=== PATIENT | female | born 1990 | race Caucasian/White ===

== ENCOUNTER → 2020-03-19 08:42 | Outpatient (CLI) | payer OTHER, SELFPAY ==
--- NOTE | 2020-03-19 08:45 | DI.US.S_ITS ---
PROCEDURE: US OB >= 14 WEEKS FETUS INDICATIONS: ANATOMY SCAN OUTSIDE/PRIOR DATING DATA: Last menstrual period (LMP): 10/28/19. LMP-based estimated date of delivery (JOANIE): 08/03/20. First dating scan (date and location): A prior outside dating scan is not available, yet with a given estimated date of delivery of 08/03/20. Estimated date of delivery (JOANIE) from this dating scan: 08/05/20. TECHNIQUE: Real-time scanning was performed of the fetus, with image documentation and biometric measurements. COMPARISON: None. FINDINGS: General: A single live intrauterine gestation is present. Presentation: Breech. Placenta: Placental position is anterior, without previa. Amniotic fluid index: 14.6 cm, normal range is 5-24 cm. heart rate: 160 beats per minute. Maternal cervical canal: 4.7 cm long. Normal lower limit is 2.5 cm. biometrics: Biparietal diameter: 4.7 cm equals 20 weeks 2 days Head circumference: 17.4 cm equals 20 weeks 0 days Abdominal circumference: 15.3 cm equals 20 weeks 3 days Femur length: 3.2 cm equals 19 weeks 6 days Estimated gestational age from initial scan: 20 weeks 3 days Composite gestational age from present scan: 20 weeks 1 day Estimated weight and percentile: 335 g, 30 percentile Measurement variability for biometric dating: +/- 7 days from 14 weeks to 15 weeks 6 days gestation, +/- 10 days from 16 weeks to 21 weeks 6 days gestation, +/- 2 weeks from 22 weeks to 27 weeks 6 days gestation, +/- 3 weeks for 28 weeks gestation or later. weight reference: 4500 g or EFW >90/95% is considered macrosomia or large for gestational age. EFW <10% is small for gestational age. EFW 5% or less is considered intra-uterine growth restriction. Anatomic survey: Neuro: Ventricles are non-dilated at less than 10 mm. Cisterna magna is normal at 3-11 mm. Cerebellum is normal in size and morphology. Nuchal skin fold: Normal at less than 6 mm between 14-21 weeks gestational age. Face: Nose and lips, facial profile are normal. Spine: No evidence for spina bifida. Heart: 4-chambered heart is present, with normal ventricular outflow tracts. Diaphragm: Diaphragm is intact. Stomach: Left-sided stomach is present. Kidneys: No hydronephrosis. Normal is less than 5 mm in 2nd trimester, less than 7 mm in 3rd trimester. Cord: 3-vessel cord has orthotopic insertion. Bladder: Normal in size. Extremities: All 4 extremities identified. IMPRESSION: A single live intrauterine is seen. No anatomic abnormalities are identified. No significant discrepancy is found between the estimated gestational age based on these images and the estimated gestational age based upon the given outside dating. Negative for placenta previa. Dictated by: Pablito Lopez M.D. on 03/19/2020 at 10:01 Approved by: Pablito Lopez M.D. on 03/19/2020 at 10:05
== END ==
PROVIDERS: Referring Provider Obstetrics & Gynecology; Visit Provider Obstetrics & Gynecology
DX: Z36.89 Encounter for other specified antenatal screening (principal); Z3A.20 20 weeks gestation of pregnancy
CPT/HCPCS: 76811

== ENCOUNTER → 2020-05-08 08:34 | Outpatient (CLI) | payer OTHER, SELFPAY ==
[2020-05-08 10:51] LABS: Hematocrit 37.5 % (36-46); Hemoglobin 12.7 g/dL (12.0-16.0)
[2020-05-08 11:18] LABS: GTT (PREG) 1 Hour PP 50gm Dose 97 mg/dL (76-139)
== END ==
PROVIDERS: Referring Provider Obstetrics & Gynecology; Visit Provider Obstetrics & Gynecology
DX: Z34.82 Encounter for supervision of other normal pregnancy, second trimester (principal); Z3A.26 26 weeks gestation of pregnancy
CPT/HCPCS: 36415; 82950; 85014; 85018

== ENCOUNTER 2020-05-12 14:54 | Observation (INO) | payer OTHER, SELFPAY ==
[2020-05-12 16:03] LABS: Add Manual Diff / Slide Review NO; Basophils Absolute Auto 0 /uL (0-100); Basophils Percent Auto 0.2 % (0-2); Eosinophils Absolute Auto 200 /uL (0-450); Eosinophils Percent Auto 1.8 % (2-4); Hematocrit 36.4 % (36-46); Hemoglobin 12.8 g/dL (12.0-16.0); Lymphocytes Absolute Auto 2300 /uL (1100-4500); Lymphocytes Percent Auto 17.7 % (25-40); Mean Corpuscular HGB Conc 35.2 % (30-36); Mean Corpuscular Hemoglobin 31.7 PG (26-34); Mean Corpuscular Volume 90.2 fL (80-100); Monocytes Absolute Auto 700 /uL (0-900); Monocytes Percent Auto 5.7 % (3-14); Neutrophils Absolute Auto 9600 /uL (1500-7000); Neutrophils Percent Auto 74.6 % (50-75); Platelet Count 205 X10^3/uL (150-400); Red Blood Cell Count 4.03 X10^6/uL (4.0-5.2); White Blood Cell Count 12.9 X10^3/uL (4.5-11.0)
[2020-05-12 16:17] LABS: Aspartate Aminotransferase 23 IU/L (14-36); BUN Creatinine Ratio 13.5 (6-22); Blood Urea Nitrogen 5 mg/dL (7-17); Estimated Glomerular Filt Rate > 60.0 mL/min (>60)
[2020-05-12 16:22] LABS: Appearance Urine UA CLEAR; Bilirubin Urine UA NEGATIVE (NEGATIVE); Color Urine UA YELLOW; Glucose Urine UA NEGATIVE (Negative); Ketones Urine UA NEGATIVE (NEGATIVE); Leukocyte Esterase Urine UA NEGATIVE (NEGATIVE); Nitrite Urine UA NEGATIVE (Negative); Occult Blood Urine UA NEGATIVE (Negative); Protein Urine UA NEGATIVE (Negative); Urobilinogen Urine UA 0.2 E.U./dL (0.2)
[2020-05-12 16:38] LABS: Squamous Epithelial Cell Urine 1-5 /HPF (0-5/HPF); pH Urine UA 7.5 (4.5-8.0)
[2020-05-12 16:39] LABS: Bacteria Urine Many (>30); Culture Indicated Urine Cult Not Indicated; RBC Urine 0-1/HPF (0-5/HPF); WBC Urine 0-1/HPF (0-5/HPF)
[2020-05-12 16:55] LABS: Creatinine Urine Random 32.4 mg/dL; Protein (Total) Urine Random 15 mg/dL (0-12); Protein Creatinine Ratio Urine 0.46 GRAM/24H
--- NOTE | 2020-05-12 16:58 | PM.OBTRLD ---
Visit Information Visit Information Date of evaluation: 05/12/20 Primary OB Provider: Aletha Peoples Reason for Evaluation: Yes non-stress test Vital Signs Vital Signs: 140/90-> 108/55, HR 109 PFSH Medical History Eczema (Acute) White coat syndrome with diagnosis of hypertension (Acute) Surgical History [place] teeth extracted (Acute ~2009) Family History Father No problems noted. Mother Hypertension Grandfather Dementia Grandmother Fatty liver disease, nonalcoholic Grandfather No problems noted. 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 Smoking Status: Never smoker second hand exposure: No alcohol intake: former (pre- : very rarely ) substance use type: does not use Review of Systems Constitutional Constitutional: Reports system reviewed and no additional complaints, except as documented Objective Labs Result Diagrams: 05/12/20 15:55 05/12/20 15:55 Labs: Laboratory Results - last 24 hr 05/12/20 05/12/20 05/12/20 15:55 15:55 16:10 WBC 12.9 H RBC 4.03 Hgb 12.8 Hct 36.4 MCV 90.2 MCH 31.7 MCHC 35.2 RDW 14.0 Plt Count 205 Neut % (Auto) 74.6 Lymph % (Auto) 17.7 L [place] % (Auto) 5.7 Eos % (Auto) 1.8 L Baso % (Auto) 0.2 Neut # (Auto) 9600 H Lymph # (Auto) 2300 [place] # (Auto) 700 Eos # (Auto) 200 Baso # (Auto) 0 BUN 5 L Creatinine 0.37 L Estimated GFR > 60.0 BUN/Creatinine Ratio 13.5 Uric Acid 3.0 AST 23 Urine Color Urine Appearance Urine pH Ur Specific [place] Urine Protein Urine Glucose (UA) Urine Ketones Urine Occult Blood Urine Nitrate Urine Bilirubin Urine Urobilinogen Ur Leukocyte Esterase Urine RBC Urine WBC Ur Squamous Epith Cells Urine Bacteria Ur Culture Indicated? U Random Total Protein 15 H Urine Creatinine 32.4 Protein/Creatinin Ratio 0.46 05/12/20 16:10 WBC RBC Hgb Hct MCV MCH MCHC RDW Plt Count Neut % (Auto) Lymph % (Auto) [place] % (Auto) Eos % (Auto) Baso % (Auto) Neut # (Auto) Lymph # (Auto) [place] # (Auto) Eos # (Auto) Baso # (Auto) BUN Creatinine Estimated GFR BUN/Creatinine Ratio Uric Acid AST Urine Color Yellow Urine Appearance Clear Urine pH 7.5 Ur Specific [place] 1.010 Urine Protein Negative Urine Glucose (UA) Negative Urine Ketones Negative Urine Occult Blood Negative Urine Nitrate Negative Urine Bilirubin Negative Urine Urobilinogen 0.2 Ur Leukocyte Esterase Negative Urine RBC 0-1/hpf Urine WBC 0-1/hpf Ur Squamous Epith Cells 1-5 /hpf Urine Bacteria Many (>30) H Ur Culture Indicated? Cult not indicated U Random Total Protein Urine Creatinine Protein/Creatinin Ratio Evaluation Evaluation Baseline heart rate: 155 Variability: Moderate (11-25) monitor accelerations: Present monitor decelerations: Absent Category of Tracing: I Laboratory results: Laboratory Tests 05/12/20 05/12/20 05/12/20 15:55 15:55 16:10 WBC 12.9 H RBC 4.03 Hgb 12.8 Hct 36.4 MCV 90.2 MCH 31.7 MCHC 35.2 RDW 14.0 Plt Count 205 Neut % (Auto) 74.6 Lymph % (Auto) 17.7 L [place] % (Auto) 5.7 Eos % (Auto) 1.8 L Baso % (Auto) 0.2 Neut # (Auto) 9600 H Lymph # (Auto) 2300 [place] # (Auto) 700 Eos # (Auto) 200 Baso # (Auto) 0 BUN 5 L Creatinine 0.37 L Estimated GFR > 60.0 BUN/Creatinine Ratio 13.5 Uric Acid 3.0 AST 23 Urine Color Urine Appearance Urine pH Ur Specific [place] Urine Protein Urine Glucose (UA) Urine Ketones Urine Occult Blood Urine Nitrate Urine Bilirubin Urine Urobilinogen Ur Leukocyte Esterase Urine RBC Urine WBC Ur Squamous Epith Cells Urine Bacteria Ur Culture Indicated? U Random Total Protein 15 H Urine Creatinine 32.4 Protein/Creatinin Ratio 0.46 05/12/20 16:10 WBC RBC Hgb Hct MCV MCH MCHC RDW Plt Count Neut % (Auto) Lymph % (Auto) [place] % (Auto) Eos % (Auto) Baso % (Auto) Neut # (Auto) Lymph # (Auto) [place] # (Auto) Eos # (Auto) Baso # (Auto) BUN Creatinine Estimated GFR BUN/Creatinine Ratio Uric Acid AST Urine Color Yellow Urine Appearance Clear Urine pH 7.5 Ur Specific [place] 1.010 Urine Protein Negative Urine Glucose (UA) Negative Urine Ketones Negative Urine Occult Blood Negative Urine Nitrate Negative Urine Bilirubin Negative Urine Urobilinogen 0.2 Ur Leukocyte Esterase Negative Urine RBC 0-1/hpf Urine WBC 0-1/hpf Ur Squamous Epith Cells 1-5 /hpf Urine Bacteria Many (>30) H Ur Culture Indicated? Cult not indicated U Random Total Protein Urine Creatinine Protein/Creatinin Ratio Diagnosis, Plan/Disposition Plan/Disposition Plan: Home with follow up in 2 weeks and antepartum precautions OB Disposition: home
== END 2020-05-12 17:05 | disposition home or self-care (01) ==
PROVIDERS: Admitting Provider Obstetrics & Gynecology; Referring Provider Obstetrics & Gynecology; Visit Provider Obstetrics & Gynecology
DX: O26.892 Other specified pregnancy related conditions, second trimester (principal); R03.0 Elevated blood-pressure reading, without diagnosis of hypertension; Z3A.26 26 weeks gestation of pregnancy
CPT/HCPCS: 36415; 59025; 81001; 82570; 84156; 84450; 84550; 85025; G0378; G0379

== ENCOUNTER → 2020-05-16 08:59 | Outpatient (CLI) | payer OTHER, SELFPAY ==
[2020-05-16 11:49] LABS: Protein (Total) Urine Random 14 mg/dL (0-12)
[2020-05-16 15:54] LABS: Collection Time Urine 24 Hours; Total Protein 24 Hour Urine 434 mg/day (42-225); Total Volume Urine 3100 mL
== END ==
PROVIDERS: Referring Provider Obstetrics & Gynecology; Visit Provider Obstetrics & Gynecology
DX: O16.9 Unspecified maternal hypertension, unspecified trimester (principal)
CPT/HCPCS: 84156

== ENCOUNTER 2020-05-26 16:31 | Outpatient (CLI) | payer OTHER, SELFPAY ==
[2020-05-26 17:08] LABS: Add Manual Diff / Slide Review NO; Basophils Absolute Auto 0 /uL (0-100); Basophils Percent Auto 0.3 % (0-2); Eosinophils Absolute Auto 200 /uL (0-450); Eosinophils Percent Auto 1.8 % (2-4); Hematocrit 38.3 % (36-46); Hemoglobin 13.2 g/dL (12.0-16.0); Lymphocytes Absolute Auto 2200 /uL (1100-4500); Mean Corpuscular HGB Conc 34.4 % (30-36); Mean Corpuscular Hemoglobin 31.2 PG (26-34); Mean Corpuscular Volume 90.6 fL (80-100); Monocytes Absolute Auto 900 /uL (0-900); Monocytes Percent Auto 6.4 % (3-14); Neutrophils Absolute Auto 10400 /uL (1500-7000); Neutrophils Percent Auto 75.5 % (50-75); Platelet Count 195 X10^3/uL (150-400); Red Blood Cell Count 4.23 X10^6/uL (4.0-5.2); Red Cell Distribution Width 13.9 % (11.6-14.8); White Blood Cell Count 13.7 X10^3/uL (4.5-11.0)
[2020-05-26 17:16] LABS: Creatinine Urine Random 13.9 mg/dL; Protein (Total) Urine Random 15 mg/dL (0-12); Protein Creatinine Ratio Urine 1.07 GRAM/24H
[2020-05-26 17:26] LABS: Aspartate Aminotransferase 21 IU/L (14-36); BUN Creatinine Ratio 16.1 (6-22); Blood Urea Nitrogen 5 mg/dL (7-17); Estimated Glomerular Filt Rate > 60.0 mL/min (>60); Uric Acid 2.8 mg/dL (2.5-6.2)
--- NOTE | 2020-05-26 17:40 | P.TNLD_ITS ---
Visit Information Visit Information Date of evaluation: 05/26/20 Primary OB Provider: Aletha Peoples On-call OB Provider: Josie Light Reason for Evaluation: Yes non-stress test non-stress test reason: hy pertension/pre-eclampsia Comments/Additional reasons for admission: Patient is a 22-year-old at 30 weeks and 1 day gestation with chronic hypertension and proteinuria versus preeclampsia. She was seen this morning in clinic with Dr. Moyer. Blood pressure was elevated however she was also scheduled to see maternal medicine today for hypertension so nothing more was done at that visit. At her maternal medicine visit blood pressure was 133/93 and 144/98. There was concern for pre term preeclampsia and patient was instructed to come back to [facility] for labs, monitoring and betamethasone. Was also recommended to start labetalol if blood pressures were still elevated. Patient reports a history of white coat hypertension though there are no past records prior to her to support this. 24 hour urine protein was e levated 2 weeks ago raising concern for preeclampsia given her intermittently elevated blood pressures. Today patient denies headache, vision changes, right upper quadrant pain or new edema. She reports good movement and denies leaking, bleeding or contractions. Vital Signs Vital Signs: Temperature 36.5? Blood pressure 127/92, heart rate 120 Blood pressure 128/81 heart rate 113 Blood pressure 134/88 heart rate 112 Blood pressure 121/70 heart rate 103 Blood pressure 121/75 heart rate 113 PFSH Medical History Eczema (Acute) White coat syndrome with diagnosis of hypertension (Acute) Surgical History [place] teeth extracted (Acute ~2009) Family History Father No problems noted. Mother Hypertension Grandfather Dementia Grandmother Fatty liver disease, nonalcoholic Grandfather No problems noted. 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 Smoking Status: Never smoker second hand exposure: No alcohol intake: former (pre- : very rarely ) substance use type: does not use Exam Vital Signs (past 8 hours): Vital signs above Const General: healthy appearing and comfortable HENMT Head: normal to inspection Ears: hearing grossly normal bilaterally Nose: external nose normal Face and sinus: normal facial exam Mouth: oral mucosae normal Eyes General: appearance normal, both eyes and all related structures Neck Neck: normal visual inspection Resp Effort & Inspection: normal respiratory effort Auscultation: clear to auscultation bilaterally Cardio Rate: regular rate Rhythm: regular rhythm Heart Sounds: no murmurs GI Other: Gravid Skin General: no rashes or lesions noted Neuro DTR's: Rt Patellar: 1+, Lt Patellar: 1+, Rt Ankle: 1+ and Lt Ankle: 1+ Extrem General: normal to inspection and no pedal edema Objective Labs Result Diagrams: 05/26/20 16:50 05/26/20 16:50 Labs: Laboratory Results - last 24 hr 05/26/20 05/26/20 05/26/20 16:30 16:50 16:50 WBC 13.7 H RBC 4.23 Hgb 13.2 Hct 38.3 MCV 90.6 MCH 31.2 MCHC 34.4 RDW 13.9 Plt Count 195 Neut % (Auto) 75.5 H Lymph % (Auto) 16.0 L [place] % (Auto) 6.4 Eos % (Auto) 1.8 L Baso % (Auto) 0.3 Neut # (Auto) 37530 H Lymph # (Auto) 2200 [place] # (Auto) 900 Eos # (Auto) 200 Baso # (Auto) 0 BUN 5 L Creatinine 0.31 L Estimated GFR > 60.0 BUN/Creatinine Ratio 16.1 Uric Acid 2.8 AST 21 U Random Total Protein 15 H Urine Creatinine 13.9 Protein/Creatinin Ratio 1.07 Evaluation Evaluation Laboratory results: Laboratory Tests 05/26/20 05/26/20 05/26/20 16:30 16:50 16:50 WBC 13.7 H RBC 4.23 Hgb 13.2 Hct 38.3 MCV 90.6 MCH 31.2 MCHC 34.4 RDW 13.9 Plt Count 195 Neut % (Auto) 75.5 H Lymph % (Auto) 16.0 L [place] % (Auto) 6.4 Eos % (Auto) 1.8 L Baso % (Auto) 0.3 Neut # (Auto) 83919 H Lymph # (Auto) 2200 [place] # (Auto) 900 Eos # (Auto) 200 Baso # (Auto) 0 BUN 5 L Creatinine 0.31 L Estimated GFR > 60.0 BUN/Creatinine Ratio 16.1 Uric Acid 2.8 AST 21 U Random Total Protein 15 H Urine Creatinine 13.9 Protein/Creatinin Ratio 1.07 Diagnosis, Plan/Disposition Final Diagnosis (1) 30 weeks gestation of : Status: Acute (2) Proteinuria: Status: Acute (3) Hypertension: Status: Acute Plan/Disposition Plan: Patient is a 29-year-old at 30 weeks and 1 day gestation with proteinuria and hypertension concerning for preeclampsia however cannot rule out chronic hypertension and proteinuria from pre-existing renal disease. Reviewed maternal medicine consultation note today which is available in s cans. They recommended NST, preeclampsia labs including 24 hour urine, betamethasone in anticipation of potential delivery, and initiation of labetalol 100 mg b.i.d.. Blood labs today are normal however her protein creatinine ratio is still elevated. Blood pressures in the center were normal with the exception of her initial blood pressure (127/92). Patient is asymptomatic today with a normal exam. NST reactive. Ultrasound done today with maternal medicine showed estimated weight at the fifty-first percentile with normal amniotic fluid volume. Will discharge patient home with a 24 hour urine container. She is familiar with instructions for collection. She will return tomorrow for repeat NST, blood pressure monitoring and second dose of betamethasone. She is familiar with symptoms of preeclampsia and when to return to the center. She needs to follow-up with Dr. peoples this week. We will see if we can facilitate a clinic follow-up for her on 05/30/20. She is schedule at the [facility] in [place] on 06/02/20. OB Disposition: home
[2020-05-26] MEDS: BETAMETHASONE 30 MG/5 ML MDV 12 MG IM (17:53)
== END 2020-05-26 18:01 | disposition home or self-care (01) ==
LOC: OB 06-02 10:43
PROVIDERS: PCP Family Medicine; Referring Provider Family Medicine; Visit Provider Family Medicine
DX: O10.913 Unspecified pre-existing hypertension complicating pregnancy, third trimester (principal); O12.13 Gestational proteinuria, third trimester; Z3A.30 30 weeks gestation of pregnancy
CPT/HCPCS: 36415; 59025; 82570; 84156; 84450; 84550; 85025; G0378; G0379; J0702

== ENCOUNTER 2020-05-27 18:13 | Outpatient (CLI) | payer OTHER, SELFPAY ==
[2020-05-27] MEDS: BETAMETHASONE 30 MG/5 ML MDV 12 MG IM (18:48)
--- NOTE | 2020-05-27 20:52 | PM.OBTRLD ---
Visit Information Visit Information Date of evaluation: 05/27/20 Primary OB Provider: Aletha Peoples On-call OB Provider: Beti Collins Reason for Evaluation: Yes non-stress test Comments/Additional reasons for admission: Karolyn 29-year-old at 30 weeks and 2 days EGA with proteinuria and intermittent hypertension concerning for preeclampsia. Reports white coat hypertension. Was seen in triage yesterday with BPs that trended to normal and labs significant for proteinuria. Per [facility] 05/26/20 consultation: recommended NST, preeclampsia labs including 24 hour urine (pending), betamethasone (first dose given yesterday 05/26/20) in anticipation of potential delivery, and initiation of labetalol 100 mg b.i.d. if hypertension persists. Vital Signs Vital Signs: BP 127/82, HR 107, T36.6C Temporal PFSH Medical History Eczema (Acute) White coat syndrome with diagnosis of hypertension (Acute) Surgical History [place] teeth extracted (Acute ~2009) Family History Father No problems noted. Mother Hypertension Grandfather Dementia Grandmother Fatty liver disease, nonalcoholic Grandfather No problems noted. 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 Smoking Status: Never smoker second hand exposure: No alcohol intake: former (pre- : very rarely ) substance use type: does not use Review of Systems Review of Systems ROS: Yes All systems reviewed with the patient and are negative except as otherwise documented Exam Vital Signs (past 8 hours): see above Objective Imaging [facility] US 05/26/20: My impression: EFW 55% with normal [facility] Labs Labs: 24 hours urine protein pending Evaluation Evaluation Baseline heart rate: 150 Variability: Moderate (11-25) monitor accelerations: Present monitor decelerations: Absent Contraction Frequency (minutes): 0 Category of Tracing: I Comments: Reactive NST. CE not indicated. Diagnosis, Plan/Disposition Final Diagnosis (1) Proteinuria: Status: Acute Problem details: Patient is asymptomatic today with a normal exam, normal blood pressure and nearly completed 24 hour urine protein collection. 2nd dose of bethamethasone was given. (2) 30 weeks gestation of : Status: Acute Problem details: Follow-up w/ this week, as scheduled and [facility] in [place] on 06/02/20. Plan/Disposition Plan: Patient is aware of warning sx (concerning preeclampsia sx) and when to call. OB Disposition: home
== END 2020-05-27 18:54 | disposition home or self-care (01) ==
LOC: OB 06-02 10:43
PROVIDERS: PCP Family Medicine; Referring Provider Obstetrics & Gynecology; Visit Provider Obstetrics & Gynecology
DX: O12.13 Gestational proteinuria, third trimester (principal); Z3A.30 30 weeks gestation of pregnancy
CPT/HCPCS: 59025; 96372; G0378; G0379; J0702

== ENCOUNTER → 2020-05-28 07:06 | Outpatient (CLI) | payer OTHER, SELFPAY ==
[2020-05-28 11:14] LABS: Protein (Total) Urine Random 9 mg/dL (0-12)
[2020-05-28 19:28] LABS: Collection Time Urine 24 Hours; Total Protein 24 Hour Urine 374 mg/day (42-225); Total Volume Urine 4150 mL
== END ==
PROVIDERS: PCP Obstetrics & Gynecology; Referring Provider Obstetrics & Gynecology; Visit Provider Obstetrics & Gynecology
DX: O16.9 Unspecified maternal hypertension, unspecified trimester (principal); Z3A.30 30 weeks gestation of pregnancy
CPT/HCPCS: 84156

== ENCOUNTER 2020-05-30 11:15 | Outpatient (CLI) | payer OTHER, SELFPAY ==
--- NOTE | 2020-05-30 11:51 | P.TNLD_ITS ---
Visit Information Visit Information Date of evaluation: 05/30/20 Primary OB Provider: Aletha Peoples Reason for Evaluation: Yes non-stress test Comments/Additional reasons for admission: This patient is a 29yo @30 weeks gestation with proteinuria and hypertension, concerning for preeclampsia without severe features vs. chronic hypertension with underlying proteinuria. Patient presents for planned NST with no PIH complaints. Vital Signs Vital Signs: 130/80, pulse 110 PFSH Medical History Eczema (Acute) White coat syndrome with diagnosis of hypertension (Acute) Surgical History [place] teeth extracted (Acute ~2009) Family History Father No problems noted. Mother Hypertension Grandfather Dementia Grandmother Fatty liver disease, nonalcoholic Grandfather No problems noted. 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 Smoking Status: Never smoker second hand exposure: No alcohol intake: former (pre- : very rarely ) substance use type: does not use Review of Systems Constitutional Constitutional: Reports system reviewed and no additional complaints, except as documented Cardiovascular Cardiovascular: Reports system reviewed and no additional complaints, except as documented Respiratory Respiratory: Reports system reviewed and no additional complaints, except as documented Exam Const General: cooperative, healthy appearing and comfortable Evaluation Evaluation Baseline heart rate: 150 Variability: Average (6-10) monitor accelerations: Present monitor decelerations: Absent Category of Tracing: I Diagnosis, Plan/Disposition Plan/Disposition Plan: Discussed MFM plan for labetalol with patient, discussed symptoms of hypotension vs. labile and intermittently elevated BPs. Patient will discuss with spouse whether to expectantly manage over weekend vs. start labetalol 100mg daily, planning to titrate to BID if tolerated. Call center and antepartum precautions/PIH symptoms reiterated. Patient will call with any questions or come in with any concerns. OB Disposition: home
== END 2020-05-30 12:06 | disposition home or self-care (01) ==
LOC: LABOR 11:17 → OB 06-02 10:45
PROVIDERS: PCP Obstetrics & Gynecology; Referring Provider Obstetrics & Gynecology; Visit Provider Obstetrics & Gynecology
DX: O13.3 Gestational [pregnancy-induced] hypertension without significant proteinuria, third trimester (principal); O12.13 Gestational proteinuria, third trimester; Z3A.28 28 weeks gestation of pregnancy
CPT/HCPCS: 59025; G0378; G0379

== ENCOUNTER 2020-06-06 12:09 | Outpatient (CLI) | payer OTHER, SELFPAY ==
[2020-06-06 12:59] LABS: Add Manual Diff / Slide Review NO; Basophils Absolute Auto 0 /uL (0-100); Basophils Percent Auto 0.2 % (0-2); Eosinophils Absolute Auto 100 /uL (0-450); Hematocrit 37.8 % (36-46); Hemoglobin 12.6 g/dL (12.0-16.0); Lymphocytes Absolute Auto 2600 /uL (1100-4500); Lymphocytes Percent Auto 17.7 % (25-40); Mean Corpuscular HGB Conc 33.2 % (30-36); Mean Corpuscular Hemoglobin 30.6 PG (26-34); Monocytes Absolute Auto 1200 /uL (0-900); Monocytes Percent Auto 8.1 % (3-14); Neutrophils Absolute Auto 10900 /uL (1500-7000); Platelet Count 197 X10^3/uL (150-400); Red Blood Cell Count 4.11 X10^6/uL (4.0-5.2); Red Cell Distribution Width 14.2 % (11.6-14.8); White Blood Cell Count 14.9 X10^3/uL (4.5-11.0)
[2020-06-06 13:14] LABS: Aspartate Aminotransferase 26 IU/L (14-36); BUN Creatinine Ratio 13.9 (6-22); Blood Urea Nitrogen 5 mg/dL (7-17); Estimated Glomerular Filt Rate > 60.0 mL/min (>60); Uric Acid 3.6 mg/dL (2.5-6.2)
--- NOTE | 2020-06-06 13:17 | P.TNLD_ITS ---
Visit Information Visit Information Date of evaluation: 06/06/20 Primary OB Provider: Aletha Peoples Reason for Evaluation: Yes non-stress test Comments/Additional reasons for admission: Patient presenting for scheduled NST. Patient is a 29yo @31+5 with preeclampsia without severe features vs. cHTN with proteinuria, otherwise stable with AGA fetus and no PIH or obstetric complaints. Vital Signs Vital Signs: 110/66 PFSH Medical History Eczema (Acute) White coat syndrome with diagnosis of hypertension (Acute) Surgical History [employer] teeth extracted (Acute ~2009) Family History Father No problems noted. Mother Hypertension Grandfather Dementia Grandmother Fatty liver disease, nonalcoholic Grandfather No problems noted. 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 Smoking Status: Never smoker second hand exposure: No alcohol intake: former (pre- : very rarely ) substance use type: does not use Review of Systems Constitutional Constitutional: Reports system reviewed and no additional complaints, except as documented Objective Labs Result Diagrams: 06/06/20 12:51 06/06/20 12:51 Labs: Laboratory Results - last 24 hr 06/06/20 06/06/20 12:51 12:51 WBC 14.9 H RBC 4.11 Hgb 12.6 Hct 37.8 MCV 92.0 MCH 30.6 MCHC 33.2 RDW 14.2 Plt Count 197 Neut % (Auto) 73.0 Lymph % (Auto) 17.7 L [place] % (Auto) 8.1 Eos % (Auto) 1.0 L Baso % (Auto) 0.2 Neut # (Auto) 13972 H Lymph # (Auto) 2600 [place] # (Auto) 1200 H Eos # (Auto) 100 Baso # (Auto) 0 BUN 5 L Creatinine 0.36 L Estimated GFR > 60.0 BUN/Creatinine Ratio 13.9 Uric Acid 3.6 AST 26 Evaluation Evaluation Baseline heart rate: 140 Variability: Moderate (11-25) monitor accelerations: Present monitor decelerations: Absent Category of Tracing: I Laboratory results: Laboratory Tests 06/06/20 06/06/20 12:51 12:51 WBC 14.9 H RBC 4.11 Hgb 12.6 Hct 37.8 MCV 92.0 MCH 30.6 MCHC 33.2 RDW 14.2 Plt Count 197 Neut % (Auto) 73.0 Lymph % (Auto) 17.7 L [place] % (Auto) 8.1 Eos % (Auto) 1.0 L Baso % (Auto) 0.2 Neut # (Auto) 38861 H Lymph # (Auto) 2600 [place] # (Auto) 1200 H Eos # (Auto) 100 Baso # (Auto) 0 BUN 5 L Creatinine 0.36 L Estimated GFR > 60.0 BUN/Creatinine Ratio 13.9 Uric Acid 3.6 AST 26 Diagnosis, Plan/Disposition Plan/Disposition Plan: Home with scheduled follow up and precautions. OB Disposition: home
== END 2020-06-06 12:54 | disposition home or self-care (01) ==
LOC: LABOR 13:07 → OB 06-09 15:28
PROVIDERS: PCP Obstetrics & Gynecology; Referring Provider Obstetrics & Gynecology; Visit Provider Obstetrics & Gynecology
DX: O13.3 Gestational [pregnancy-induced] hypertension without significant proteinuria, third trimester (principal); Z3A.29 29 weeks gestation of pregnancy
CPT/HCPCS: 36415; 59025; 84450; 84550; 85025; G0378; G0379

== ENCOUNTER 2020-06-12 09:35 | Outpatient (CLI) | payer OTHER, SELFPAY ==
--- NOTE | 2020-06-12 10:11 | PM.OBTRLD ---
Visit Information Visit Information Date of evaluation: 06/12/20 Primary OB Provider: Aletha Peoples On-call OB Provider: Josie Light Reason for Evaluation: Yes non-stress test non-stress test reason: hypertension/pre-eclampsia Vital Signs Vital Signs: Blood pressure 135/78 [facility] Medical History Eczema (Acute) White coat syndrome with diagnosis of hypertension (Acute) Surgical History [place] teeth extracted (Acute ~2009) Family History Father No problems noted. Mother Hypertension Grandfather Dementia Grandmother Fatty liver disease, nonalcoholic Grandfather No problems noted. 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 Reactive NST today. Patient is scheduled to follow-up in clinic tomorrow. Return precautions given. OB Disposition: home
== END 2020-06-12 10:05 | disposition home or self-care (01) ==
LOC: LABOR 10:18 → OB 06-13 11:34
PROVIDERS: PCP Obstetrics & Gynecology; Referring Provider Obstetrics & Gynecology; Visit Provider Obstetrics & Gynecology
DX: O16.3 Unspecified maternal hypertension, third trimester (principal); R80.9 Proteinuria, unspecified; Z3A.30 30 weeks gestation of pregnancy
CPT/HCPCS: 59025; G0378; G0379

== ENCOUNTER → 2020-06-13 12:25 | Outpatient (CLI) | payer OTHER, SELFPAY ==
[2020-06-13 13:35] LABS: Add Manual Diff / Slide Review NO; Basophils Absolute Auto 0 /uL (0-100); Basophils Percent Auto 0.2 % (0-2); Eosinophils Absolute Auto 200 /uL (0-450); Eosinophils Percent Auto 1.8 % (2-4); Hematocrit 39.1 % (36-46); Hemoglobin 13.4 g/dL (12.0-16.0); Lymphocytes Absolute Auto 2600 /uL (1100-4500); Lymphocytes Percent Auto 18.9 % (25-40); Mean Corpuscular HGB Conc 34.3 % (30-36); Mean Corpuscular Hemoglobin 31.3 PG (26-34); Mean Corpuscular Volume 91.3 fL (80-100); Monocytes Absolute Auto 1100 /uL (0-900); Monocytes Percent Auto 8.2 % (3-14); Neutrophils Absolute Auto 9800 /uL (1500-7000); Neutrophils Percent Auto 70.9 % (50-75); Platelet Count 189 X10^3/uL (150-400); Red Blood Cell Count 4.28 X10^6/uL (4.0-5.2); Red Cell Distribution Width 14.4 % (11.6-14.8); White Blood Cell Count 13.8 X10^3/uL (4.5-11.0)
[2020-06-13 14:18] LABS: Alanine Aminotransferase 15 IU/L (<35); Albumin 3.5 g/dL (3.5-5.0); Albumin Globulin Ratio 1.2 (1.0-2.8); Alkaline Phosphatase 111 U/L (38-126); Aspartate Aminotransferase 23 IU/L (14-36); BUN Creatinine Ratio 11.8 (6-22); Bilirubin Total 0.4 mg/dL (0.2-1.3); Blood Urea Nitrogen 4 mg/dL (7-17); Calcium 9.6 mg/dL (8.4-10.2); Carbon Dioxide 22 mmol/L (22-32); Chloride 106 mmol/L (98-107); Estimated Glomerular Filt Rate > 60.0 mL/min (>60); Glucose 69 mg/dL (70-100); HEMOLYSIS < 15 (0-50); Lactate Dehydrogenase 482 U/L (313-618); Potassium 4.1 mmol/L (3.4-5.1); Sodium 133 mmol/L (137-145); Total Protein 6.5 g/dL (6.3-8.2); Uric Acid 3.4 mg/dL (2.5-6.2)
== END ==
PROVIDERS: Referring Provider Obstetrics & Gynecology; Visit Provider Obstetrics & Gynecology
DX: I10 Essential (primary) hypertension (principal)
CPT/HCPCS: 36415; 80053; 83615; 84550; 85025

== ENCOUNTER 2020-06-19 09:03 | Outpatient (CLI) | payer OTHER, SELFPAY ==
[2020-06-19 09:39] LABS: Add Manual Diff / Slide Review NO; Basophils Absolute Auto 0 /uL (0-100); Basophils Percent Auto 0.2 % (0-2); Eosinophils Absolute Auto 200 /uL (0-450); Eosinophils Percent Auto 1.9 % (2-4); Hematocrit 39.2 % (36-46); Hemoglobin 13.1 g/dL (12.0-16.0); Lymphocytes Absolute Auto 2500 /uL (1100-4500); Lymphocytes Percent Auto 19.3 % (25-40); Mean Corpuscular HGB Conc 33.4 % (30-36); Mean Corpuscular Hemoglobin 30.8 PG (26-34); Monocytes Absolute Auto 500 /uL (0-900); Monocytes Percent Auto 4.2 % (3-14); Neutrophils Absolute Auto 9600 /uL (1500-7000); Neutrophils Percent Auto 74.4 % (50-75); Platelet Count 192 X10^3/uL (150-400); Red Blood Cell Count 4.26 X10^6/uL (4.0-5.2); Red Cell Distribution Width 14.3 % (11.6-14.8); White Blood Cell Count 12.9 X10^3/uL (4.5-11.0)
--- NOTE | 2020-06-19 09:53 | PM.OBTRLD ---
Visit Information Visit Information Date of evaluation: 06/19/20 Primary OB Provider: Aletha Peoples Reason for Evaluation: Yes non-stress test Comments/Additional reasons for admission: Patient with preeclampsia without severe features vs. cHTN, on labetalol 100mg BID, otherwise stable and doing well, here for NST as part of biweekly testing. Vital Signs Vital Signs: 129/82, HR 113 PFSH Medical History Eczema (Acute) White coat syndrome with diagnosis of hypertension (Acute) Surgical History [place] teeth extracted (Acute ~2009) Family History Father No problems noted. Mother Hypertension Grandfather Dementia Grandmother Fatty liver disease, nonalcoholic Grandfather No problems noted. 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 Smoking Status: Never smoker second hand exposure: No alcohol intake: former (pre- : very rarely ) substance use type: does not use Review of Systems Constitutional Constitutional: Reports system reviewed and no additional complaints, except as documented Cardiovascular Cardiovascular: Reports system reviewed and no additional complaints, except as documented Respiratory Respiratory: Reports system reviewed and no additional complaints, except as documented Objective Labs Result Diagrams: 06/19/20 09:30 06/19/20 09:30 Labs: Laboratory Results - last 24 hr 06/19/20 09:30 WBC 12.9 H RBC 4.26 Hgb 13.1 Hct 39.2 MCV 92.0 MCH 30.8 MCHC 33.4 RDW 14.3 Plt Count 192 Neut % (Auto) 74.4 Lymph % (Auto) 19.3 L [place] % (Auto) 4.2 Eos % (Auto) 1.9 L Baso % (Auto) 0.2 Neut # (Auto) 9600 H Lymph # (Auto) 2500 [place] # (Auto) 500 Eos # (Auto) 200 Baso # (Auto) 0 Evaluation Evaluation Baseline heart rate: 145 Variability: Moderate (11-25) monitor accelerations: Present monitor decelerations: Absent Category of Tracing: I Laboratory results: Laboratory Tests 06/19/20 09:30 WBC 12.9 H RBC 4.26 Hgb 13.1 Hct 39.2 MCV 92.0 MCH 30.8 MCHC 33.4 RDW 14.3 Plt Count 192 Neut % (Auto) 74.4 Lymph % (Auto) 19.3 L [place] % (Auto) 4.2 Eos % (Auto) 1.9 L Baso % (Auto) 0.2 Neut # (Auto) 9600 H Lymph # (Auto) 2500 [place] # (Auto) 500 Eos # (Auto) 200 Baso # (Auto) 0 Diagnosis, Plan/Disposition Plan/Disposition Plan: Home with clinic visit tomorrow. OB Disposition: home
[2020-06-19 09:55] LABS: Aspartate Aminotransferase 25 IU/L (14-36); BUN Creatinine Ratio 11.1 (6-22); Blood Urea Nitrogen 4 mg/dL (7-17); Estimated Glomerular Filt Rate > 60.0 mL/min (>60); Uric Acid 3.3 mg/dL (2.5-6.2)
== END 2020-06-19 09:49 | disposition home or self-care (01) ==
LOC: LABOR 09:18 → OB 12:50
PROVIDERS: Referring Provider Obstetrics & Gynecology; Visit Provider Obstetrics & Gynecology
DX: O14.03 Mild to moderate pre-eclampsia, third trimester (principal); Z3A.31 31 weeks gestation of pregnancy
CPT/HCPCS: 36415; 59025; 84450; 84550; 85025; G0378; G0379

== ENCOUNTER 2020-06-26 09:07 | Outpatient (CLI) | payer OTHER, SELFPAY ==
--- NOTE | 2020-06-26 09:51 | P.TNLD_ITS ---
Visit Information Visit Information Date of evaluation: 06/26/20 Primary OB Provider: Aletha Peoples On-call OB Provider: Josie Light Reason for Evaluation: Yes non-stress test non-stress test reason: hy pertension/pre-eclampsia Vital Signs Vital Signs: BP 129/79 HR 113 BP 132/85 HR 115 PFSH Medical History Eczema (Acute) White coat syndrome with diagnosis of hypertension (Acute) Surgical History [place] teeth extracted (Acute ~2009) Family History Father No problems noted. Mother Hypertension Grandfather Dementia Grandmother Fatty liver disease, nonalcoholic Grandfather No problems noted. 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 Reactive NST today. Follow up in clinic as scheduled. OB Disposition: home
--- NOTE | 2020-06-26 10:05 | PM.OBTRLD ---
Visit Information Visit Information Date of evaluation: 06/26/20 Primary OB Provider: Aletha Peoples Reason for Evaluation: Yes non-stress test Comments/Additional reasons for admission: Patient with preeclampsia without severe features vs. cHTN, on labetalol 100mg BID, otherwise stable and doing well, here for NST as part of biweekly testing. Vital Signs Vital Signs: 132/85, HR 113 PFSH Medical History Eczema (Acute) White coat syndrome with diagnosis of hypertension (Acute) Surgical History [place] teeth extracted (Acute ~2009) Family History Father No problems noted. Mother Hypertension Grandfather Dementia Grandmother Fatty liver disease, nonalcoholic Grandfather No problems noted. 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 OB Disposition: home
== END 2020-06-26 09:53 | disposition home or self-care (01) ==
LOC: OB 14:43
PROVIDERS: Referring Provider Obstetrics & Gynecology; Visit Provider Obstetrics & Gynecology
DX: O14.03 Mild to moderate pre-eclampsia, third trimester (principal); Z3A.34 34 weeks gestation of pregnancy
CPT/HCPCS: 59025; G0378; G0379

== ENCOUNTER → 2020-06-27 10:08 | Outpatient (CLI) | payer OTHER, SELFPAY ==
[2020-06-27 11:33] LABS: Add Manual Diff / Slide Review NO; Basophils Absolute Auto 0 /uL (0-100); Basophils Percent Auto 0.1 % (0-2); Eosinophils Absolute Auto 200 /uL (0-450); Eosinophils Percent Auto 1.4 % (2-4); Hematocrit 39.2 % (36-46); Hemoglobin 13.4 g/dL (12.0-16.0); Lymphocytes Absolute Auto 2300 /uL (1100-4500); Lymphocytes Percent Auto 17.5 % (25-40); Mean Corpuscular HGB Conc 34.1 % (30-36); Mean Corpuscular Volume 90.8 fL (80-100); Monocytes Absolute Auto 700 /uL (0-900); Monocytes Percent Auto 5.2 % (3-14); Neutrophils Absolute Auto 9800 /uL (1500-7000); Neutrophils Percent Auto 75.8 % (50-75); Platelet Count 171 X10^3/uL (150-400); Red Blood Cell Count 4.31 X10^6/uL (4.0-5.2); Red Cell Distribution Width 14.2 % (11.6-14.8); White Blood Cell Count 12.9 X10^3/uL (4.5-11.0)
[2020-06-27 12:13] LABS: Aspartate Aminotransferase 24 IU/L (14-36); BUN Creatinine Ratio 11.4 (6-22); Blood Urea Nitrogen 4 mg/dL (7-17); Estimated Glomerular Filt Rate > 60.0 mL/min (>60); Uric Acid 3.7 mg/dL (2.5-6.2)
== END ==
PROVIDERS: Referring Provider Obstetrics & Gynecology; Visit Provider Obstetrics & Gynecology
DX: I10 Essential (primary) hypertension (principal)
CPT/HCPCS: 36415; 84450; 84550; 85025

== ENCOUNTER → 2020-07-03 12:10 | Outpatient (CLI) | payer OTHER, SELFPAY ==
[2020-07-04 14:17] LABS: Strep Grp B PCR NEG for Grp B Strep
== END ==
PROVIDERS: Visit Provider Obstetrics & Gynecology
DX: Z34.03 Encounter for supervision of normal first pregnancy, third trimester (principal); Z3A.35 35 weeks gestation of pregnancy
CPT/HCPCS: 87653

== ENCOUNTER 2020-07-03 12:21 | Outpatient (CLI) | payer OTHER, SELFPAY ==
[2020-07-03 13:51] LABS: Add Manual Diff / Slide Review NO; Basophils Absolute Auto 0 /uL (0-100); Basophils Percent Auto 0.1 % (0-2); Eosinophils Absolute Auto 200 /uL (0-450); Eosinophils Percent Auto 1.2 % (2-4); Hematocrit 39.5 % (36-46); Hemoglobin 13.3 g/dL (12.0-16.0); Lymphocytes Absolute Auto 2300 /uL (1100-4500); Lymphocytes Percent Auto 16.3 % (25-40); Mean Corpuscular HGB Conc 33.6 % (30-36); Mean Corpuscular Hemoglobin 30.7 PG (26-34); Mean Corpuscular Volume 91.3 fL (80-100); Monocytes Absolute Auto 1000 /uL (0-900); Monocytes Percent Auto 7.4 % (3-14); Neutrophils Absolute Auto 10500 /uL (1500-7000); Platelet Count 178 X10^3/uL (150-400); Red Blood Cell Count 4.33 X10^6/uL (4.0-5.2)
[2020-07-03 14:02] LABS: Aspartate Aminotransferase 21 IU/L (14-36); BUN Creatinine Ratio 8.1 (6-22); Blood Urea Nitrogen 3 mg/dL (7-17); Estimated Glomerular Filt Rate > 60.0 mL/min (>60); Uric Acid 3.6 mg/dL (2.5-6.2)
--- NOTE | 2020-07-04 12:29 | PM.OBTRLD ---
Visit Information Visit Information Date of evaluation: 07/04/20 Primary OB Provider: Aletha Peoples Reason for Evaluation: Yes non-stress test Comments/Additional reasons for admission: 29yo @35+4 with preeclampsia without severe features vs. cHTN with proteinuria, presenting for scheduled NST with no obstetric complaints. BPs well managed on 100mg labetalol BID. Vital Signs Vital Signs: 124/77, HR 98 PFSH Medical History Eczema (Acute) White coat syndrome with diagnosis of hypertension (Acute) Surgical History [place] teeth extracted (Acute ~2009) Family History Father No problems noted. Mother Hypertension Grandfather Dementia Grandmother Fatty liver disease, nonalcoholic Grandfather No problems noted. 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 Smoking Status: Never smoker second hand exposure: No alcohol intake: former (pre- : very rarely ) substance use type: does not use Review of Systems Constitutional Constitutional: Reports system reviewed and no additional complaints, except as documented Objective Labs Result Diagrams: 07/03/20 13:20 07/03/20 13:20 Labs: Laboratory Results - last 24 hr 07/03/20 07/03/20 13:20 13:20 WBC 14.0 H RBC 4.33 Hgb 13.3 Hct 39.5 MCV 91.3 MCH 30.7 MCHC 33.6 RDW 14.0 Plt Count 178 Neut % (Auto) 75.0 Lymph % (Auto) 16.3 L [place] % (Auto) 7.4 Eos % (Auto) 1.2 L Baso % (Auto) 0.1 Neut # (Auto) 59760 H Lymph # (Auto) 2300 [place] # (Auto) 1000 H Eos # (Auto) 200 Baso # (Auto) 0 BUN 3 L Creatinine 0.37 L Estimated GFR > 60.0 BUN/Creatinine Ratio 8.1 Uric Acid 3.6 AST 21 Evaluation Evaluation Baseline heart rate: 135 Variability: Moderate (11-25) monitor accelerations: Present monitor decelerations: Absent Contraction Frequency (minutes): 2 Laboratory results: Laboratory Tests 07/03/20 07/03/20 13:20 13:20 WBC 14.0 H RBC 4.33 Hgb 13.3 Hct 39.5 MCV 91.3 MCH 30.7 MCHC 33.6 RDW 14.0 Plt Count 178 Neut % (Auto) 75.0 Lymph % (Auto) 16.3 L [place] % (Auto) 7.4 Eos % (Auto) 1.2 L Baso % (Auto) 0.1 Neut # (Auto) 13985 H Lymph # (Auto) 2300 [place] # (Auto) 1000 H Eos # (Auto) 200 Baso # (Auto) 0 BUN 3 L Creatinine 0.37 L Estimated GFR > 60.0 BUN/Creatinine Ratio 8.1 Uric Acid 3.6 AST 21 Comments: ctx vs uterine irritability q2, asymptomatic, cervix long and closed Diagnosis, Plan/Disposition Plan/Disposition Plan: Home, scheduled for growth/BPP/NST through [facility] on Tuesday. Routine and PIH precautions. OB Disposition: home
== END 2020-07-03 14:18 | disposition home or self-care (01) ==
LOC: LABOR 12:44 → OB 07-04 11:41
PROVIDERS: Referring Provider Obstetrics & Gynecology; Visit Provider Obstetrics & Gynecology
DX: O14.03 Mild to moderate pre-eclampsia, third trimester (principal); Z3A.35 35 weeks gestation of pregnancy
CPT/HCPCS: 36415; 59025; 59050; 84450; 84550; 85025; 87653; G0378; G0379

== ENCOUNTER 2020-07-10 14:13 | Outpatient (CLI) | payer OTHER, SELFPAY ==
--- NOTE | 2020-07-10 14:54 | P.TNLD_ITS ---
Visit Information Visit Information Date of evaluation: 07/10/20 Primary OB Provider: Aletha Peoples Reason for Evaluation: Yes non-stress test Comments/Additional reasons for admission: 29yo @36+4 with preeclampsia without severe features vs. cHTN with proteinuria, presenting for scheduled NST with no obstetric complaints. BPs well managed on 100mg labetalol BID. Vital Signs Vital Signs: 127/88, heart rate 116 PFSH Medical History Eczema (Acute) White coat syndrome with diagnosis of hypertension (Acute) Surgical History [place] teeth extracted (Acute ~2009) Family History Father No problems noted. Mother Hypertension Grandfather Dementia Grandmother Fatty liver disease, nonalcoholic Grandfather No problems noted. 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 Precautio ns discussed. Home with routine precautions. As per plan per MFM, PIH labs drawn, patient to be notified if abnormal. OB Disposition: home
[2020-07-10 15:12] LABS: Add Manual Diff / Slide Review NO; Basophils Absolute Auto 0 /uL (0-100); Basophils Percent Auto 0.1 % (0-2); Eosinophils Absolute Auto 200 /uL (0-450); Eosinophils Percent Auto 1.6 % (2-4); Hematocrit 39.4 % (36-46); Hemoglobin 13.1 g/dL (12.0-16.0); Lymphocytes Absolute Auto 2300 /uL (1100-4500); Lymphocytes Percent Auto 16.9 % (25-40); Mean Corpuscular HGB Conc 33.4 % (30-36); Mean Corpuscular Hemoglobin 30.3 PG (26-34); Mean Corpuscular Volume 90.9 fL (80-100); Monocytes Absolute Auto 900 /uL (0-900); Monocytes Percent Auto 6.8 % (3-14); Neutrophils Absolute Auto 10000 /uL (1500-7000); Neutrophils Percent Auto 74.6 % (50-75); Platelet Count 158 X10^3/uL (150-400); Red Blood Cell Count 4.33 X10^6/uL (4.0-5.2); White Blood Cell Count 13.3 X10^3/uL (4.5-11.0)
[2020-07-10 15:24] LABS: Aspartate Aminotransferase 22 IU/L (14-36); BUN Creatinine Ratio 12.2 (6-22); Blood Urea Nitrogen 5 mg/dL (7-17); Estimated Glomerular Filt Rate > 60.0 mL/min (>60); Uric Acid 3.6 mg/dL (2.5-6.2)
== END 2020-07-10 15:00 | disposition home or self-care (01) ==
LOC: LABOR 14:33 → OB 07-11 08:06
PROVIDERS: Referring Provider Obstetrics & Gynecology; Visit Provider Obstetrics & Gynecology
DX: O14.03 Mild to moderate pre-eclampsia, third trimester (principal); Z3A.36 36 weeks gestation of pregnancy
CPT/HCPCS: 36415; 59025; 59050; 84450; 84550; 85025; G0378; G0379

== ENCOUNTER → 2020-07-12 13:32 | Outpatient (CLI) | payer OTHER, SELFPAY ==
[2020-07-13 20:50] LABS: COVID19 Sendout Not Detected (Not Detect)
== END ==
PROVIDERS: Visit Provider Physician Assistant
DX: Z11.59 Encounter for screening for other viral diseases (principal)
CPT/HCPCS: 87635

== ENCOUNTER 2020-07-14 18:56 | Inpatient (IN) | payer OTHER, SELFPAY ==
[2020-07-14] MEDS: LACTATED RINGERS 1,000 ML 100 ML IV (20:15)
[2020-07-14 20:33] LABS: Add Manual Diff / Slide Review NO; Basophils Absolute Auto 100 /uL (0-100); Basophils Percent Auto 0.3 % (0-2); Eosinophils Absolute Auto 300 /uL (0-450); Eosinophils Percent Auto 1.6 % (2-4); Hematocrit 39.9 % (36-46); Hemoglobin 13.4 g/dL (12.0-16.0); Lymphocytes Absolute Auto 3000 /uL (1100-4500); Lymphocytes Percent Auto 17.7 % (25-40); Mean Corpuscular HGB Conc 33.6 % (30-36); Mean Corpuscular Hemoglobin 30.6 PG (26-34); Monocytes Absolute Auto 1100 /uL (0-900); Monocytes Percent Auto 6.5 % (3-14); Neutrophils Absolute Auto 12400 /uL (1500-7000); Neutrophils Percent Auto 73.9 % (50-75); Platelet Count 189 X10^3/uL (150-400); Red Blood Cell Count 4.38 X10^6/uL (4.0-5.2); White Blood Cell Count 16.7 X10^3/uL (4.5-11.0)
[2020-07-14] MEDS: DINOPROSTONE VAG (CERVIDIL) 10 MG VAG (20:37)
[2020-07-14 20:52] LABS: Aspartate Aminotransferase 23 IU/L (14-36); BUN Creatinine Ratio 11.6 (6-22); Blood Urea Nitrogen 5 mg/dL (7-17); Estimated Glomerular Filt Rate > 60.0 mL/min (>60); Uric Acid 4.1 mg/dL (2.5-6.2)
[2020-07-14 21:06] VITALS: BP 132/86
--- NOTE | 2020-07-15 07:52 | P.HPOB_ITS ---
OB HPI Date/Time Date of admission: 07/14/20 Date Patient Seen: 07/15/20 Time Patient Seen: 07:52 History of Present Condition Chief complaint: MATERNITY : 1 Para: 0 Estimated Date of Delivery: 08/03/20 Estimated Gestational Age (weeks): 37 Narrative: Karolyn Muñoz is a 29 year old @37+2 with preeclampsia without severe features, admitted for induction of labor for the same. She reports feeling well with good movement, contractions q2-3 this AM after cervical ripening overnight, no LOF or VB. Patient reports increased hand and face swelling over the past few days, but denies SINGH, visual changes, chest pain, SOB, or any other complaints. The patient transferred to our clinic at 18 weeks with a history of white coat hypertension, and developed hypertension and new onset proteinuria at 28 weeks. She has been followed jointly with MFM, who agree with a diagnosis of either preeclampsia without severe features or cHTN with new onset proteinuria and recommended induction in the 37th week. She has had an AGA fetus, has had otherwise normal testing and no other complications, and has been largely normotensive on 100mg labetalol. Indications Indication for induction OB: other (PIH) History of Present care: good care Dating criteria: LMP confirmed by 1st trimester US Ultrasounds: normal 1st trimester US and normal mid trimester US Obstetrical complications: preeclampsia Medical complications: none Preadmission Labs Blood type: A (+) positive -: Antibody screen: negative, GBS status: negative, HBsAG: negative, HIV: negative and RPR/VDLR: negative -: Chlamydia screen: not detected and Gonorrhea screen: not detected -: Rubella: immune Integrated screen: declined anuploidy screening Urine: negative 1 hr GTT: 69 Evaluation Evaluation Baseline heart rate: 130 Variability: Moderate (11-25) monitor accelerations: Present monitor decelerations: Absent Contraction Frequency (minutes): 3 Uterine Contraction Intensity: Moderate Category of Tracing: Reactive Laboratory results: Laboratory Tests 07/14/20 07/14/20 07/14/20 19:45 19:45 20:25 WBC 16.7 H RBC 4.38 Hgb 13.4 Hct 39.9 MCV 91.0 MCH 30.6 MCHC 33.6 RDW 14.0 Plt Count 189 Neut % (Auto) 73.9 Lymph % (Auto) 17.7 L [place] % (Auto) 6.5 Eos % (Auto) 1.6 L Baso % (Auto) 0.3 Neut # (Auto) 75006 H Lymph # (Auto) 3000 [place] # (Auto) 1100 H Eos # (Auto) 300 Baso # (Auto) 100 BUN 5 L Creatinine 0.43 L Estimated GFR > 60.0 BUN/Creatinine Ratio 11.6 Uric Acid 4.1 AST 23 Blood Type A Positive Antibody Screen Negative Comments: cervidil in place until 8:30 AM [facility] Medical History Eczema (Acute) White coat syndrome with diagnosis of hypertension (Acute) Surgical History [place] teeth extracted (Acute ~2009) Family History Father No problems noted. Mother Hypertension Grandfather Dementia Grandmother Fatty liver disease, nonalcoholic Grandfather No problems noted. 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 Smoking Status: Never smoker second hand exposure: No alcohol intake: former (pre- : very rarely ) substance use type: does not use Meds Home Medications and Allergies Home Medications Medication Instructions Recorded Confirmed Type prenat.vits,elie,sxr-tlik-slfma 1 tab PO DAILY 02/29/20 07/14/20 History labetalol 100 mg tablet 100 mg PO BID #60 tab 05/30/20 07/14/20 Rx Double Electric breast Pump and #1 each 06/06/20 07/14/20 Rx Supplies Allergies Allergy/AdvReac Type Severity Reaction Status Date / Time No Known Drug Allergies Allergy Verified 06/17/20 09:25 Review of Systems Constitutional Constitutional: Reports system reviewed and no additional complaints, except as documented Cardiovascular Cardiovascular: Reports system reviewed and no additional complaints, except as documented Respiratory Respiratory: Reports system reviewed and no additional complaints, except as documented Gastrointestinal Gastrointestinal: Reports system reviewed and no additional complaints, except as documented Genitourinary Genitourinary: Reports system reviewed and no additional complaints, except as documented Musculoskeletal Musculoskeletal: Reports system reviewed and no additional complaints, except as documented Neurologic Neurologic: Reports system reviewed and no additional complaints, except as documented Hematologic/Lymphatic Hematologic/Lymphatic: Reports system reviewed and no additional complaints, except as documented Exam Vital Signs (past 8 hours): 106-132/57-91, HR 92-125, afebrile Const General: cooperative, healthy appearing, comfortable and well groomed Resp Effort & Inspection: normal respiratory effort Auscultation: clear to auscultation bilaterally Cardio Rate: regular rate Rhythm: regular rhythm GI Palpation: soft and No tender Extrem Other: 1+ edema in face and upper extremities, 2+ edema in lowed extremities Objective Labs Result Diagrams: 07/14/20 19:45 07/14/20 20:25 Labs: Laboratory Results - last 24 hr 07/14/20 07/14/20 07/14/20 19:45 19:45 20:25 WBC 16.7 H RBC 4.38 Hgb 13.4 Hct 39.9 MCV 91.0 MCH 30.6 MCHC 33.6 RDW 14.0 Plt Count 189 Neut % (Auto) 73.9 Lymph % (Auto) 17.7 L [place] % (Auto) 6.5 Eos % (Auto) 1.6 L Baso % (Auto) 0.3 Neut # (Auto) 79788 H Lymph # (Auto) 3000 [place] # (Auto) 1100 H Eos # (Auto) 300 Baso # (Auto) 100 BUN 5 L Creatinine 0.43 L Estimated GFR > 60.0 BUN/Creatinine Ratio 11.6 Uric Acid 4.1 AST 23 Blood Type A Positive Antibody Screen Negative Assessment and Plan Assessment and Plan Assessment and Plan narrative: This patient is admitted for induction of labor for preeclampsia without severe features, as recommended by M. Her cervix was ripened overnight with cervidil, and remains closed. A transcervical patterson catheter could not be placed, and the patient will be started on 25mcg q4 of vaginal cytotec as allowed by the tracing. No signs of severe preeclampsia and cat 1 EFM. - vaginal cytotec 25 mcg q4hrs - cEFM, toco - Ambulation encouraged - Light breakfast then clear liquid diet - HLIV, bolus PRN
[2020-07-15 09:43] VITALS: BP 123/78; PULSE 80
[2020-07-15] MEDS: LABETALOL 100 MG TABLET PO ×2 (09:43→21:12)
[2020-07-15] MEDS: miSOPROStoL 25 MCG TABLET VAG ×2 (10:59→15:24)
--- NOTE | 2020-07-15 14:35 | PM.OBPNLAB ---
Date/Time Date Patient Seen: 07/15/20 Time Patient Seen: 14:45 Pain Control Pain control: tolerating well Pelvic Exam Dilation (cm): 0 Effacement (%): 50 station: -3 Amniotic membrane status: Intact Contractions Contraction frequency (min): 4 Contraction intensity: Moderate Status Heart Rate Baseline: 135 Monitor Accelerations: Present Monitor Decelerations: Absent Monitor Variability: Moderate Assessment and Plan Assessment: induction ongoing Plan: continuous present management Comments: Continue vaginal cytotec.
--- NOTE | 2020-07-15 20:25 | PM.OBPNLAB ---
Date/Time Date Patient Seen: 07/15/20 Time Patient Seen: 20:25 Pain Control Pain control: tolerating well Comments: Patient tolerated placement of transcervical patterson bulb well Pelvic Exam Dilation (cm): 1 Effacement (%): 50 station: -3 Amniotic membrane status: Intact Comments: 118/81, 106 BPM Contractions Contraction frequency (min): 2 Contraction pattern: Regular Contraction intensity: Moderate Status status: Category l Heart Rate Baseline: 145 Monitor Accelerations: Present Monitor Decelerations: Absent Monitor Variability: Moderate Assessment and Plan Assessment: induction ongoing Plan: continuous present management Comments: This patient continues to have an unfavorable cervix s/p 12 hours of cervidil and 2x 25mcg vaginal cytotec. She is currently niko q2 and uncomfortable. A transcervical patterson balloon with 40ccs of sterile water was successfully placed. Overnight, continue close monitoring of vitals, continuous monitoring, and administer 50mcg oral cytotec if contractions space.
[2020-07-15 21:12] VITALS: BP 120/74; PULSE 80
[2020-07-15] MEDS: ZOLPIDEM 5 MG TABLET PO (23:09)
[2020-07-16 08:17] VITALS: BP 126/86; PULSE 105; RESP 18; TEMP 36.4
--- NOTE | 2020-07-16 08:53 | PM.OBPNLAB ---
Date/Time Date Patient Seen: 07/16/20 Time Patient Seen: 08:53 Pain Control Pain control: tolerating well Comments: Patient reports feeling cramping but otherwise well, no SINGH, no visual changes. 134/88, HR 102 Pelvic Exam Dilation (cm): 4 Effacement (%): 70 station: -2 Amniotic membrane status: Intact Comments: ROT Contractions Monitor mode: External Pitocin rate (mU/min): 5 Contraction frequency (min): 3 Contraction pattern: Regular Contraction intensity: Moderate Status status: Category l Heart Rate Baseline: 140 Monitor Accelerations: Present Monitor Decelerations: Absent Assessment and Plan Assessment: induction ongoing Plan: continuous present management Comments: patient repositioning to attempt to change presentation to OA. Plan to continue pitocin, attempt AROM later this AM.
[2020-07-16] MEDS: OXYTOCIN PREMIX 30 UNIT/500 ML PLAST..BAG IV (08:57)
[2020-07-16 09:23] LABS: Add Manual Diff / Slide Review NO; Basophils Absolute Auto 0 /uL (0-100); Basophils Percent Auto 0.2 % (0-2); Eosinophils Absolute Auto 100 /uL (0-450); Eosinophils Percent Auto 0.9 % (2-4); Hematocrit 41.6 % (36-46); Lymphocytes Absolute Auto 1700 /uL (1100-4500); Lymphocytes Percent Auto 10.4 % (25-40); Mean Corpuscular HGB Conc 33.6 % (30-36); Mean Corpuscular Hemoglobin 30.4 PG (26-34); Mean Corpuscular Volume 90.7 fL (80-100); Monocytes Absolute Auto 800 /uL (0-900); Monocytes Percent Auto 4.7 % (3-14); Neutrophils Absolute Auto 13500 /uL (1500-7000); Neutrophils Percent Auto 83.8 % (50-75); Platelet Count 169 X10^3/uL (150-400); Red Blood Cell Count 4.58 X10^6/uL (4.0-5.2); Red Cell Distribution Width 14.2 % (11.6-14.8); White Blood Cell Count 16.1 X10^3/uL (4.5-11.0)
[2020-07-16 09:31] LABS: Alanine Aminotransferase 15 IU/L (<35); Albumin 3.4 g/dL (3.5-5.0); Alkaline Phosphatase 141 U/L (38-126); Aspartate Aminotransferase 24 IU/L (14-36); BUN Creatinine Ratio 16.7 (6-22); Bilirubin Total 0.6 mg/dL (0.2-1.3); Blood Urea Nitrogen 6 mg/dL (7-17); Calcium 9.1 mg/dL (8.4-10.2); Carbon Dioxide 23 mmol/L (22-32); Chloride 104 mmol/L (98-107); Estimated Glomerular Filt Rate > 60.0 mL/min (>60); Globulin 3.3 g/dL (1.7-4.1); Glucose 127 mg/dL (70-100); HEMOLYSIS < 15 (0-50); Potassium 3.5 mmol/L (3.4-5.1); Sodium 133 mmol/L (137-145); Total Protein 6.7 g/dL (6.3-8.2)
[2020-07-16 09:40] VITALS: BP 134/88; PULSE 102
[2020-07-16] MEDS: LABETALOL 100 MG TABLET PO ×2 (09:40→21:12)
[2020-07-16] MEDS: LACTATED RINGERS 1,000 ML 100 ML IV (13:08)
[2020-07-16] MEDS: CALCIUM CARBONATE 500 MG TAB PO (14:28)
--- NOTE | 2020-07-16 14:40 | P.PNOB_ITS ---
Date/Time Date Patient Seen: 07/16/20 Time Patient Seen: 11:10 Pain Control Pain control: tolerating well Pelvic Exam Dilation (cm): 4 Effacement (%): 80 station: -1 Amniotic membrane status: Leaking Contractions Monitor mode: External Pitocin rate (mU/min): 9 Contraction frequency (min): 3 Contraction duration (min): 1 Contraction pattern: Regular Contraction intensity: Moderate Status status: Category l Heart Rate Baseline: 145 Monitor Accelerations: Present Monitor Decelerations: Absent Monitor Variability: Moderate Assessment and Plan Assessment: induction ongoing Plan: continuous present management Comments: Patient ruptured while turning from hands/knees to back. Gush on digi catherine exam of clear fluid.
--- NOTE | 2020-07-16 15:09 | PM.OBPNLAB ---
Date/Time Date Patient Seen: 07/16/20 Time Patient Seen: 15:09 Pain Control Pain control: epidural Pelvic Exam Dilation (cm): 9 Effacement (%): 100 station: +1 Amniotic membrane status: Leaking Comments: anterior lip Contractions Monitor mode: External Pitocin rate (mU/min): 4 Contraction frequency (min): 3 Contraction pattern: Regular Contraction intensity: Moderate Status Heart Rate Baseline: 130 Monitor Accelerations: Present Monitor Decelerations: Variable Monitor Variability: Moderate Assessment and Plan Assessment: active labor Plan: continuous present management Comments: Recheck in 30 minutes
--- NOTE | 2020-07-16 16:40 | PM.OBPRVD ---
Events: Induced HTN Labor & Delivery Delivery date: 07/16/20 Intrapartal events: Prolonged Latent Phase, Mild Preeclampsia, Acceleration and Deceleration Cervical ripening method: other (vaginal cytotec, patterson bulb and cervidil) Induction method: per pitocin protocol Delivery monitor: external FHT and external uterine Route of delivery: L&D Laceration Description: Periurethral - 1st Degree and Perineal - 2nd Degree Delivery repair: vicryl Estimated blood loss (mL): 200 Anesthesia type: Epidural Narrative: This patient presented for induction at 37 weeks gestation, having been monitored throughout the third trimester for preeclampsia without severe features vs. cHTN with new onset proteinuria. She was induced with cervidil, then vaginal cytotec, then a patterson bulb, before achieving a favorable cervix and being induced with pitocin. She underwent SROM for clear fluid 5 hours prior to delivery and progressed to fully dilated. After a short second stage, she was delivered of a healthy baby boy, apgars 8+9, weight ____. The shoulders delivered with ease, and there was no nuchal cord. The placenta delivered spontaneously and intact shortly thereafter. A 2nd degree perineal laceration was repaired with 3-0 vicryl in the usual fashion. There were no other intrapartum or immediate complications. Baby 1: gender: Male Presentation: vertex position: Left Occiput Transverse (Direct OA) Placenta delivery description: Spontaneous cord vessel description: 3 Vessels score (1 min): 8 score (5 min): 9 Plan for aftercare: Routine care, augmented by repeat PIH labs on PPD#1 and close monitoring of vital signs and for signs of worsening PIH.
[2020-07-16] MEDS: DERMOPLAST SPRAY 20% 60 ML 1 SPRAY TOP (21:11)
[2020-07-16] MEDS: IBUPROFEN 600 MG TABLET PO (21:12)
[2020-07-16] MEDS: ACETAMINOPHEN 325 MG TABLET 650 MG PO (21:12)
[2020-07-17] MEDS: IBUPROFEN 600 MG TABLET PO ×2 (02:57→08:42)
[2020-07-17] MEDS: ACETAMINOPHEN 325 MG TABLET 650 MG PO (02:57)
[2020-07-17 07:18] LABS: Add Manual Diff / Slide Review NO; Basophils Absolute Auto 0 /uL (0-100); Basophils Percent Auto 0.2 % (0-2); Eosinophils Absolute Auto 200 /uL (0-450); Eosinophils Percent Auto 1.4 % (2-4); Hematocrit 37.4 % (36-46); Hemoglobin 12.7 g/dL (12.0-16.0); Lymphocytes Absolute Auto 3500 /uL (1100-4500); Lymphocytes Percent Auto 20.1 % (25-40); Mean Corpuscular Hemoglobin 31.1 PG (26-34); Mean Corpuscular Volume 91.4 fL (80-100); Monocytes Absolute Auto 1500 /uL (0-900); Monocytes Percent Auto 8.4 % (3-14); Neutrophils Absolute Auto 12100 /uL (1500-7000); Neutrophils Percent Auto 69.9 % (50-75); Platelet Count 158 X10^3/uL (150-400); Red Blood Cell Count 4.09 X10^6/uL (4.0-5.2); White Blood Cell Count 17.3 X10^3/uL (4.5-11.0)
[2020-07-17 07:26] LABS: Aspartate Aminotransferase 25 IU/L (14-36); BUN Creatinine Ratio 13.6 (6-22); Blood Urea Nitrogen 6 mg/dL (7-17); Estimated Glomerular Filt Rate > 60.0 mL/min (>60)
[2020-07-17 08:09] LABS: Free T4, Direct Thyroxine 0.63 ng/dL (0.78-2.19)
[2020-07-17 08:23] LABS: Thyroid Stimulating Hormone 2.27 uIU/mL (0.47-4.68)
[2020-07-17 08:42] VITALS: BP 120/86
[2020-07-17] MEDS: DOCUSATE 100 MG CAPSULE PO (08:42)
[2020-07-17] MEDS: LABETALOL 100 MG TABLET PO (08:42)
--- NOTE | 2020-07-17 13:08 | PM.OBPN.1 ---
Subjective - OB Subjective Patient comments: no complaints, pain well controlled, tolerating diet and flatus present baby status: nursing well and other (being evaluated for intermittent hypoxia) feeding status: pumping and bottle feeding Narrative: This patient is a 29yo now P1, PPD#1 s/p uncomplicated after induction of labor at 37 weeks for preeclampsia without severe features. Date Patient Seen: 07/17/20 Time Patient Seen: 13:09 Interval history: The patient denies any PIH complaints including no SINGH, visual changes, SOB, chest pain, or RUQ pain. Swelling is stable in the lower extremities and decreased in the face and hands today. Reports mild perineal burning but otherwise doing well with mild to moderate lochia, ambulating, voiding, tolerating PO, and passing flatus. Exam Vital Signs (past 8 hours): - 07/17/20 08:42 Blood Pressure 120/86 Const General: cooperative, healthy appearing and comfortable Resp Effort & Inspection: normal respiratory effort Auscultation: clear to auscultation bilaterally Cardio Rate: regular rate Rhythm: regular rhythm GI Palpation: soft and No tender Other: fundus firm, well below u External Female Exam: normal external appearance (repair intact, exam limited but no gross abnormalities.) Skin General: no rashes or lesions noted Objective Labs Result Diagrams: 07/17/20 06:50 07/17/20 06:50 Labs: Laboratory Results - last 24 hr 07/17/20 07/17/20 07/17/20 06:50 06:50 06:50 WBC 17.3 H RBC 4.09 Hgb 12.7 Hct 37.4 MCV 91.4 MCH 31.1 MCHC 34.0 RDW 14.0 Plt Count 158 Neut % (Auto) 69.9 Lymph % (Auto) 20.1 L [place]cd[place] % (Auto) 8.4 Eos % (Auto) 1.4 L Baso % (Auto) 0.2 Neut # (Auto) 25895 H Lymph # (Auto) 3500 [place] # (Auto) 1500 H Eos # (Auto) 200 Baso # (Auto) 0 BUN 6 L Creatinine 0.44 L Estimated GFR > 60.0 BUN/Creatinine Ratio 13.6 Uric Acid 4.0 AST 25 TSH 2.27 Free T4 0.63 L Assessment & Plan Plan day: 1 plan OB: routine care Comments: This patient is PPD#1 s/p after induction of labor for preeclampsia without severe features. Her BPs are well controlled and labs are stable this AM. The patient is to remain in house overnight, pending timing of discharge of her baby. Routine care, labetalol to continue as per prior plan with MFM. Time Spent With Patient Time: Total time spent is greater than 50% in coordination of care (as documented) at patient's floor/unit and/or counseling patient: Time with patient: less than 15 minutes
--- NOTE | 2020-07-17 14:39 | P.DS_ITS ---
Discharge Providers Provider Date of admission: 07/14/20 18:56 Discharge Date: 07/17/20 Consults: 07/17/20 16:38 Consult to Net C Developer Routine Comment: Discharge provider: Aletha Peoples MD Summary Hospital Course Date Patient Seen: 07/17/20 Procedures: Hospital Course: This patient was admitted for a scheduled induction of labor after 37 weeks, due to preeclampsia without severe features comanaged with maternal medicine. She underwent cervical ripening with cervidil, vaginal cytotec, and a patterson bulb. She was then induced with pitocin and underwent an uncomplicated vaginal delivery of a healthy baby boy, apgars 8+9, with no other intrapartum or immediate complications. On PPD#1, the patient was discharged due to transfer of the to a NICU for respiratory support. Peripartum Data Delivery Method: Natural Vaginal Laceration Description: Periurethral - 2nd Degree complications: none 1: Gender: Male Disposition of : NICU Status at Discharge Cognitive/behavioral status at discharge: oriented Functional status at discharge: independent ambulation Overall status at discharge: patient is progressing back to baseline Time Spent with Patient Time attestation: Total time spent providing and/or coordinating discharge services: Time spent: Greater than 30 minutes Objective Labs Result Diagrams: 07/17/20 06:50 07/17/20 06:50 Labs: Laboratory Results - last 24 hr 07/17/20 07/17/20 07/17/20 06:50 06:50 06:50 WBC 17.3 H RBC 4.09 Hgb 12.7 Hct 37.4 MCV 91.4 MCH 31.1 MCHC 34.0 RDW 14.0 Plt Count 158 Neut % (Auto) 69.9 Lymph % (Auto) 20.1 L [place] % (Auto) 8.4 Eos % (Auto) 1.4 L Baso % (Auto) 0.2 Neut # (Auto) 93889 H Lymph # (Auto) 3500 [place] # (Auto) 1500 H Eos # (Auto) 200 Baso # (Auto) 0 BUN 6 L Creatinine 0.44 L Estimated GFR > 60.0 BUN/Creatinine Ratio 13.6 Uric Acid 4.0 AST 25 TSH 2.27 Free T4 0.63 L Exam Vital Signs (past 8 hours): - 07/17/20 08:42 Blood Pressure 120/86 Discharge Plan Discharge Plan Patient Disposition: Home Discharge orders & Medications Prescriptions: New ibuprofen 600 mg tablet 600 mg PO Q6H PRN (Reason: pain) Qty: 30 RF: 1 acetaminophen 325 mg capsule 650 mg PO Q6H PRN (Reason: pain) Qty: 30 RF: 0 Continued (DME) [employer] Electric breast Pump and Supplies See Rx Instructions .ROUTE .MEDSUPPLY Qty: 1 RF: 0 labetalol 100 mg tablet 100 mg PO BID Qty: 60 RF: 2 prenat.vits,elie,nyu-wysa-oxzpd Tablet 1 tab PO DAILY RF: 0 Follow up/Referrals: Aletha Peoples MD [Physician] - 1 Week (Appointment with on , June at 10:45 am ) Diet/Activity/Treatments Diet: Regular Activity: Nothing in the vagina for 6 weeks. Avoid lifting more than 10 lbs for 6 weeks. If you have increasing headaches, visual changes, chest pain, SOB, ble eding, nausea, vomiting, or any other complaints. Skin/Wound/Dressing Care Report to your healthcare provider any signs of infection, such as:: chills, fever, night sweats, increased pain, unusual drainage and unusual redness Visit Report/Discharge Packet Instructions: DI for Labor and Delivery, Vaginal Visit Report Forms: Patient Portal/API, Stroke Signs & Symptoms Discharges patient from system. Discharge Date/Time: 07/17/20 17:00
== END 2020-07-17 17:00 | disposition home or self-care (01) | DRG 807 ==
PROVIDERS: Admitting Provider Obstetrics & Gynecology; Referring Provider Obstetrics & Gynecology; Visit Provider Obstetrics & Gynecology
DX: O14.04 Mild to moderate pre-eclampsia, complicating childbirth (principal); Z37.0 Single live birth; Z3A.37 37 weeks gestation of pregnancy; O71.82 Other specified trauma to perineum and vulva; O70.1 Second degree perineal laceration during delivery; O63.0 Prolonged first stage (of labor)
CPT/HCPCS: 01967; 36415; 59050; 59410; 76815; 80053; 84439; 84443; 84450; 84550; 85025; 86850; 86900; 86901; G0379; J2590

== ENCOUNTER → 2020-10-01 12:15 | Outpatient (CLI) | payer OTHER, SELFPAY ==
[2020-10-01 12:20] LABS: RBC Urine None Seen (0-5/HPF); WBC Urine None Seen (0-5/HPF)
[2020-10-01 13:20] LABS: Appearance Urine UA CLEAR; Bilirubin Urine UA NEGATIVE (NEGATIVE); Color Urine UA YELLOW; Glucose Urine UA NEGATIVE (Negative); Ketones Urine UA NEGATIVE (NEGATIVE); Leukocyte Esterase Urine UA NEGATIVE (NEGATIVE); Nitrite Urine UA NEGATIVE (Negative); Occult Blood Urine UA NEGATIVE (Negative); Protein Urine UA NEGATIVE (Negative); Urobilinogen Urine UA 0.2 E.U./dL (0.2)
[2020-10-01 13:21] LABS: pH Urine UA 5.5 (4.5-8.0)
[2020-10-01 13:31] LABS: Bacteria Urine Occasional (0-1); Culture Indicated Urine Cult Not Indicated
== END ==
PROVIDERS: PCP Registered Nurse Diabetes Educator; Referring Provider Registered Nurse Diabetes Educator; Visit Provider Registered Nurse Diabetes Educator
DX: I10 Essential (primary) hypertension (principal); R80.9 Proteinuria, unspecified
CPT/HCPCS: 81001

== ENCOUNTER → 2022-07-05 11:02 | Outpatient (CLI) | payer OTHER, SELFPAY ==
[2022-07-05 13:41] LABS: Urine N gonorrhoeae NOT DETECTED
[2022-07-05 13:52] LABS: Urine Chlamydia NOT DETECTED
== END ==
PROVIDERS: PCP Registered Nurse Diabetes Educator; Visit Provider Obstetrics & Gynecology
DX: Z34.81 Encounter for supervision of other normal pregnancy, first trimester (principal); Z3A.08 8 weeks gestation of pregnancy
CPT/HCPCS: 87491; 87591

== ENCOUNTER → 2022-07-05 11:53 | Outpatient (CLI) | payer OTHER, SELFPAY ==
[2022-07-05 13:12] LABS: Basophils Absolute Auto 100 /uL (0-100); Basophils Percent Auto 0.4 % (0-2); Eosinophils Absolute Auto 100 /uL (0-450); Eosinophils Percent Auto 0.8 % (2-4); Hematocrit 39.2 % (36-46); Hemoglobin 13.5 g/dL (12.0-16.0); Lymphocytes Absolute Auto 3500 /uL (1100-4500); Lymphocytes Percent Auto 26.1 % (25-40); Mean Corpuscular HGB Conc 34.5 % (30-36); Mean Corpuscular Hemoglobin 29.4 PG (26-34); Mean Corpuscular Volume 85.2 fL (80-100); Monocytes Absolute Auto 600 /uL (0-900); Monocytes Percent Auto 4.7 % (3-14); Neutrophils Absolute Auto 9200 /uL (1500-7000); Red Blood Cell Count 4.61 X10^6/uL (4.0-5.2); Red Cell Distribution Width 13.6 % (11.6-14.8); White Blood Cell Count 13.6 X10^3/uL (4.5-11.0)
[2022-07-05 13:14] LABS: Add Manual Diff / Slide Review SLIDE REVIEW
[2022-07-05 13:22] LABS: Appearance Urine UA CLEAR; Bilirubin Urine UA NEGATIVE (NEGATIVE); Color Urine UA YELLOW; Glucose Urine UA NEGATIVE (Negative); Ketones Urine UA NEGATIVE (NEGATIVE); Leukocyte Esterase Urine UA NEGATIVE (NEGATIVE); Nitrite Urine UA NEGATIVE (Negative); Occult Blood Urine UA NEGATIVE (Negative); Protein Urine UA NEGATIVE (Negative); Specific Gravity Urine UA 1.015 (1.000-1.035); Urobilinogen Urine UA 0.2 E.U./dL (0.2)
[2022-07-05 13:23] LABS: Alanine Aminotransferase 15 IU/L (<35); Albumin 4.8 g/dL (3.5-5.0); Albumin Globulin Ratio 1.4 (1.0-2.8); Alkaline Phosphatase 41 U/L (38-126); Aspartate Aminotransferase 22 IU/L (14-36); BUN Creatinine Ratio 11.9 (6-22); Bilirubin Total 0.5 mg/dL (0.2-1.3); Blood Urea Nitrogen 5 mg/dL (7-17); Calcium 9.4 mg/dL (8.4-10.2); Carbon Dioxide 29 mmol/L (22-32); Chloride 99 mmol/L (98-107); Estimated Glomerular Filt Rate > 60 mL/min (>60); Globulin 3.4 g/dL (1.7-4.1); Glucose 86 mg/dL (70-100); Sodium 136 mmol/L (137-145); Total Protein 8.2 g/dL (6.3-8.2)
[2022-07-05 13:24] LABS: HEMOLYSIS < 15 (0-50); Potassium 3.7 mmol/L (3.4-5.1)
[2022-07-05 13:55] LABS: Platelet Count 244 X10^3/uL (150-400); RBC Morphology Normal Morphology
[2022-07-05 17:39] LABS: HIV 1 & 2 Ab/Ag 4th Gen Combo NEGATIVE (NEGATIVE); Hep C Virus Ab w/Reflex Quant NEGATIVE s/c (NEGATIVE); Hepatitis B Surface Antigen NEGATIVE s/c (NEGATIVE)
[2022-07-06 06:29] LABS: RPR Screen Non Reactive (Non Reactive)
[2022-07-06 07:18] LABS: Varicella IgG Antibody 380 index (Immune >165)
== END ==
PROVIDERS: PCP Registered Nurse Diabetes Educator; Referring Provider Obstetrics & Gynecology; Visit Provider Obstetrics & Gynecology
DX: O16.1 Unspecified maternal hypertension, first trimester (principal); Z3A.08 8 weeks gestation of pregnancy
CPT/HCPCS: 36415; 80053; 80055; 81003; 86787; 86803; 86850; 86900; 86901; 87389; 87491; 87591

== ENCOUNTER → 2022-08-28 08:18 | Outpatient (CLI) | payer OTHER, SELFPAY ==
[2022-08-29 05:42] LABS: RPR Screen Non Reactive (Non Reactive)
[2022-08-29 10:07] LABS: Varicella IgG Antibody 294 index (Immune >165)
== END ==
PROVIDERS: PCP Registered Nurse Diabetes Educator; Referring Provider Obstetrics & Gynecology; Visit Provider Obstetrics & Gynecology
DX: O09.90 Supervision of high risk pregnancy, unspecified, unspecified trimester (principal)
CPT/HCPCS: 36415; 82575; 83615; 84156; 84450; 84460; 84520; 84550; 85025; 86592; 86787